=== PATIENT | female | born 1980 | race Caucasian/White ===

== ENCOUNTER 2017-09-11 10:31 | Emergency (ER) | payer BC, OTHER ==
[2017-09-11 10:51] VITALS: BP 127/82; PULSE 61; TEMP 98.4; BMI 25.8
--- NOTE | 2017-09-11 10:55 | PDOC ---
History of Present Illness - General Chief Complaint: Constipation Stated Complaint: CONSTIPATION Time Seen by Provider: 09/11/17 10:40 History Source: Patient Exam Limitations: No Limitations - History of Present Illness Travel History: No Initial Comments: 09/11/17 10:50 37 y/o female with long standing history of constipation presents with constipation to the ER. Patient denies N/V/d. Had a small bowel movement yesterday. Always has abdominal discomfort. No fever or chills. OTC treatments not working. No SOB, chest pain, dysuria or back pain. Pt has seen Dr. Harris in the past and has had an EGD and colonoscopy and told everything is okay. Pt saw her media technician 2 weeks ago and told she has an ovarian cyst on US (left side). Denies . No vaginal bleeding. On BCP. Pain Radiation: reports: no radiation Past History - Past Medical History Allergies/Adverse Reactions: Allergies Allergy/AdvReac Type Severity Reaction Status Date / Time No Known Allergies Allergy Verified 09/11/17 10:39 Home Medications: Ambulatory Orders Mag Hydrox/Al Hydrox/Simeth [Mylanta *Suspension*] 30 ml PO ONCE 09/11/17 Magnesium Citrate [Citroma] 300 ml PO ONCE 09/11/17 Magnesium Hydrox 2400MG/30Ml [Milk of Magnesia -] 30 ml PO ONCE 09/11/17 Methylcellulose [Fiber Laxative] 500 mg PO ONCE 09/11/17 Anemia: No Asthma: No Cancer: No Cardiac Disorders: No CVA: No COPD: No CHF: No Dementia: No Diabetes: No GI Disorders: No Disorders: No HTN: No Hypercholesterolemia: No Liver Disease: No Seizures: No Thyroid Disease: No - Surgical History Abdominal Surgery: Yes (LIPOSUCTION 2010) Appendectomy: No Cardiac Surgery: No Cholecystectomy: No Lung Surgery: No Neurologic Surgery: No Orthopedic Surgery: No - Suicide/Smoking/Psychosocial Hx Smoking History: Former smoker Have you smoked in the past 12 months: No If you are a former smoker, when did you quit?: 2010 Hx Alcohol Use: No Drug/Substance Use Hx: No Substance Use Type: None Hx Substance Use Treatment: No Review of Systems - Review of Systems Able to Perform ROS?: Yes Is the patient limited French proficient: No Constitutional: No: Chills, Fever Respiratory: No: Cough, Shortness of Breath Cardiac (ROS): No: Chest Pain ABD/GI: Yes: Constipated. No: Diarrhea, Nausea, Vomiting : No: Burning, Dysuria, Discharge Musculoskeletal: No: Back Pain All Other Systems: Reviewed and Negative *Physical Exam - Physical Exam General Appearance: Yes: Nourished, Appropriately Dressed. No: Apparent Distress HEENT: positive: EOMI, GHADA, Normal ENT Inspection, Normal Voice, Pharynx Normal Neck: positive: Trachea midline, Supple. negative: Tender, Rigid Respiratory/Chest: positive: Lungs Clear, Normal Breath Sounds Cardiovascular: positive: Regular Rhythm, Regular Rate, S1, S2. negative: Edema , JVD, Murmur Vascular Pulses: Femoral (R): 4+, Femoral (L): 4+, Carotid (R): 4+, Carotid (L) : 4+, Dorsalis-Pedis (R): 4+, Doralis-Pedis (L): 4+ Gastrointestinal/Abdominal: positive: Normal Bowel Sounds, Tender (mild tenderness in lower abdomen left side, no tenderness to RLQ, no RUQ or LUQ tenderness, +BS, no pulsatile mass, soft +BS), Flat, Soft. negative: Organomegaly, Pulsatile Mass Lymphatic: negative: Adenopathy, Tenderness, Other Musculoskeletal: positive: Normal Inspection. negative: CVA Tenderness Extremity: positive: Normal Capillary Refill, Normal Inspection, Normal Range of Motion Integumentary: positive: Normal Color, Dry, Warm Neurologic: positive: manager trust II-XII NML intact, Fully Oriented, Alert, Normal Mood/ Affect, Normal Response, Motor Strength 5/5 ED Treatment Course - LABORATORY CBC & Chemistry Diagram: 09/11/17 11:20 09/11/17 11:20 Progress Note - Progress Note Progress Note: Pt with long standing constipation who gets relief with OTC but goes back to being constipated Has been to GI and told everything ok. Will obtain x-ray and recommend GI follow up Pt is in agreement with plan Pt's is positive, cancelled x-ray and ordered transvaginal US to r/o ectopic. HCG level low, US shows no definitive intrauterine or ectopic, cyst versus hemorrhagic cyst Repeat BHCG level in 2days Follow up with [facility] If worsen return to ER Spoke to Dr. Contreras, [facility], recommends follow up in 2 days with [facility], will see in office If worsen return to ER *DC/Admit/Observation/Transfer Diagnosis at time of Disposition: Constipation Qualifiers: Constipation type: unspecified constipation type Qualified Code(s): K59.00 - Constipation, unspecified Qualifiers: Weeks of gestation: less than 8 weeks Qualified Code(s): Z3A.01 - Less than 8 weeks gestation of - Discharge Dispostion Disposition: HOME Condition at time of disposition: Good Admit: No - Referrals Referrals: Martin Harris MD [Primary Care Provider] - - Patient Instructions Printed Discharge Instructions: Medications and Additional Instructions: Fluids, rest Stop constipation meds Follow up with [facility] for repeat [facility] in 2 days If worsen return to ER - Post Discharge Activity
[2017-09-11 11:41] LABS: BASO % 0.6 % (0-2.0); HEMATOCRIT 36.3 % (32.4-45.2); HEMOGLOBIN 12.3 GM/dl (10.7-15.3); LYMPH % 34.1 % (8-40); MCHC 33.7 g/dl (32.0-36.0); MEAN CELL VOLUME 80.1 fl (80-96); MEAN PLT VOLUME 8.1 fl (7.5-11.1); MONO % 5.9 % (3.8-10.2); NEUT % 57.4 % (42.8-82.8); PLATELET COUNT 294 K/MM3 (134-434); RBC 4.54 M/mm3 (3.60-5.2); RDW 14.2 % (11.6-15.6); WHITE BLOOD COUNT 5.3 K/mm3 (4.0-10.8)
[2017-09-11 11:53] LABS: ALBUMIN 3.9 g/dl (3.5-5.0); ALK PHOS 65 U/L (32-92); ANION GAP 8 (8-16); BILIRUBIN,TOTAL 0.5 mg/dl (0.2-1.0); BLOOD UREA NITROGEN 9 mg/dl (7-18); CHLORIDE 103 mmol/L (98-107); CO2 23 mmol/L (22-28); GLUCOSE,RANDOM 86 mg/dl (74-106); POTASSIUM 4.1 mmol/L (3.5-5.1); SGOT/AST 18 U/L (10-42); SGPT/ALT 17 U/L (10-40); SODIUM 134 mmol/L (136-145); TOT PROT 7.3 g/dl (6.4-8.3)
[2017-09-11 12:16] LABS: CREATININE < 0.8 mg/dl (0.6-1.3)
== END 2017-09-11 14:11 | disposition home or self-care (01) ==
LOC: FER 10:31 → SUPCPDRO 10:31 → FER 14:11
DX: K59.00 Constipation, unspecified (principal); Z3A.01 Less than 8 weeks gestation of pregnancy; Z87.891 Personal history of nicotine dependence
CPT/HCPCS: 36415; 76817-TC; 80053; 84702; 84703; 85025; 86850; 86900; 86901; 99283-25